=== PATIENT | female | born 1950 | race Caucasian/White ===

== ENCOUNTER → 2018-09-24 | Outpatient (CLI) | payer OTHER ==
[~2018-09-24] MED LIST: ATORVASTATIN CA20 MG PO; FUROSEMIDE40 MG PO; KLOR-CON 88 MEQ PO; LEVOTHYROXINE50 MCG PO; LOSARTAN POTASS25 MG PO; METFORMIN HCL500 MG PO; METOPROLOL SUC100 MG PO; NOVOLIN N100 UNIT/1 SQ; NOVOLIN R100 UNIT/1 SQ; PAROXETINE HCL20 MG PO
--- NOTE | 2018-09-25 09:58 | Diagnostic Imaging Report ---
PROCEDURE: BONE DXA DUAL ENERGY COMPARISON:None. INDICATIONS:OSTEOPORSIS SCREENING FINDINGS:Evaluation of the left hip and lumbar spine was performed utilizing DEXA Hologic bone densitometer. The study is technically adequate. The patient does not have any known previous non-traumatic fractures or other risk factors. Left hip total bone mineral density: 1.023 gm/cm2, T-score is 0.5, Z-score is 1.9. Lumbar spine total bone mineral density: 1.189 gm/cm2, T-score is 1.3, Z-score is 3.4. Impression: 1. Normal bone mineral density of the left hip, fracture risk is not increased. 2. Normal bone mineral density of the lumbar spine, fracture risk is not increased. The patient's fracture risk is compared to an age-matched control. Medical evaluation for secondary causes of low bone mineral density may be appropriate. Correlate clinically for the necessity and timing of the next bone mineral density study. National Osteoporosis Foundation recommendations: Initial therapy to reduce fracture risk in postmenopausal women with -BMD t-scores below -2.0 by central DXA with no risk factors -BMD t-scores below -1.5 by central CXA with one or more risk factors (first deg relative with hip fracture, prior personal fracture, low body weight, smoking) -A prior vertebral or hip fracture AACE n(Clinical Endocrinology) recommends treating the following: Postmenopausal women who have osteoporosis as diagnosed by fragility fractures or t-score -2.5 or below. Postmenopausal women who have risk factors (including hx of hip fracture, low body weight, smoking, risk of falling, high bone turnover, advancing age) and borderline low BMD T-scores of -1.5 or below Adequate intake of calcium (at least 1200mg/day) and vitamin D (400-800IU/day). Regular weight bearing and muscle-strengthening exercises Avoid smoking and excessive alcohol Romario Navarrete D.O. Dictated by: Romario Navarrete D.O. on 09/25/2018 at 10:07 Electronically approved by: Romario Navarrete D.O. on 09/25/2018 at 10:07
== END ==
LOC: DX 07:50
PROVIDERS: ATTEND Obstetrics & Gynecology
DX: Z78.0 Asymptomatic menopausal state (principal)
CPT/HCPCS: 77080

== ENCOUNTER → 2018-11-09 | Day surgery (SDC) | payer OTHER ==
[2018-11-02 15:12] LABS: BASOPHILS # (AUTO) 0.1 (0.0-0.1); BASOPHILS % 0.7 % (0.0-1.0); EOSINOPHILS # (AUTO) 0.3 (0.0-0.4); EOSINOPHILS % 3.4 % (0.0-6.0); HEMATOCRIT 38.2 % (34.2-44.1); HEMOGLOBIN 12.4 g/dL (12.0-16.0); LYMPHOCYTES # (AUTO) 2.9 (1.0-3.2); MEAN CORPUSCULAR HEMOGLOBIN 30.5 pg (28-32); MEAN CORPUSCULAR HGB CONC 32.5 g/dL (31-35); MEAN CORPUSCULAR VOLUME 93.9 fL (81-99); MONOCYTES # (AUTO) 0.4 (0.2-0.8); MONOCYTES % 4.7 % (4.4-11.3); NEUTROPHILS # (AUTO) 4.8 (2.1-6.9); PLATELET COUNT 233 x10e3/uL (140-360); RED BLOOD COUNT 4.07 x10e6/uL (3.6-5.1); RED CELL DISTRIBUTION WIDTH 12.9 % (11.7-14.4)
--- NOTE | 2018-11-02 15:31 | Diagnostic Imaging Report ---
EXAMINATION: CHEST 2 VIEWS INDICATION: Pre-op for A and P repair. Chest pain COMPARISON: None FINDINGS: TUBES and LINES: None. LUNGS: Lungs are well inflated. Mild chronic appearing changes in the lungs. There is no evidence of pneumonia or pulmonary edema. PLEURA: No pleural effusion or pneumothorax. HEART AND MEDIASTINUM: The cardiomediastinal silhouette is unremarkable. BONES AND SOFT TISSUES: No acute osseous lesion. Soft tissues are unremarkable. UPPER ABDOMEN: No free air under the diaphragm. IMPRESSION: No acute thoracic abnormality. Signed by: Dr. Akash Flores M.D. on 11/02/2018 3:28 PM
[2018-11-02 15:33] LABS: ALANINE AMINOTRANSFERASE 12 IU/L (0-55); ALBUMIN 3.5 g/dL (3.5-5.0); ALBUMIN/GLOBULIN RATIO 0.9 (0.8-2.0); ALKALINE PHOSPHATASE 71 IU/L (40-150); ANION GAP 14.4 mmol/L (8-16); BLOOD UREA NITROGEN 10 mg/dL (7-26); BUN/CREATININE RATIO 13 (6-25); CALCIUM 9.4 mg/dL (8.4-10.2); CARBON DIOXIDE 26 mmol/L (22-29); CHLORIDE 101 mmol/L (98-107); EST GLOMERULAR FILTRATION RATE > 60 ML/MIN (60-); GLUCOSE 306 mg/dL (74-118); POTASSIUM 4.4 mmol/L (3.5-5.1); SODIUM 137 mmol/L (136-145)
[~2018-11-09] MED LIST changes: +ACETAMINOPHEN/CODEINE 300MG - 30MG TAB ONE; +BUPIVACAINE 0.25% 30ML SDV INJ ONE; +CEFAZOLIN SOD 2 GM/D5W 50ML 50 ML IV ONE; +DEXAMETHASONE SOD PHOS INJ 4 MG/ML VIAL ONE; +ESTROGENS CONJUGATED VAGINAL CR 45 GM TUBE PV ONE; +FENTANYL CITRATE/PF 100MCG/2 ML INJ ONE; +GLYCOPYRROLATE INJ 1MG/ 5 ML SYR ONE; +HYDROCODONE/APAP 10MG-325MG TAB PO PRN; +HYDROMORPHONE 2MG/ML 2 MG/ML ML ONE; +KETOROLAC TROMETHAMINE 30 MG/ML VIAL IM PRN; +LIDOCAINE HCL 2% LOCAL INJ 5 ML SDV VIAL INJ ONE; +MEPERIDINE HCL INJ 25 MG/ML VIAL IV PRN; +MIDAZOLAM HCL 2 MG/2 ML VIAL ONE; +MORPHINE SULFATE INJ 4 MG/ML INJ ONE; +NEOSTIGMINE 5 MG/5ML SYR ONE; +ONDANSETRON HCL INJ 2 MG/ML VIAL ONE; +PROPOFOL IV EMULSION 10 MG/ML 20 ML VIAL ONE; +ROCURONIUM BROMIDE 10 MG/ML 5ML VIAL ONE; +SEVOFLURANE INHAL SOLN 250 ML PEN BTL ONE
--- OUTSIDE RECORDS SUMMARY | 2018-11-09 07:38 | XMS REPORT ---
Author [facility] Address Unknown Phone Unavailable Care Team Providers Care Home Theater Expert Name Role Phone SAMUEL MILTON Unavailable Unavailable Problems This patient has no known problems. Allergies, Adverse Reactions, Alerts This patient has no known allergies or adverse reactions. Medications This patient has no known medications. Results Test Description Test Time Test Comments Text Results Atomic Results Result Comments CHEST 2 VIEWS 2018-11-02 15:27:00 [place] [address] Patient Name: CAL [place] MR #: [id number] : 1950 Age/Sex: 68/F Req #: [id number] Adm Physician: Ordered by: SAMUEL MILTON MD Report #: [id number] Location: OR Room/Bed: Procedure: [id number] DX/CHEST 2 VIEWS Exam Date: 11/02/18 Exam Time: 1510 REPORT STATUS: Signed EXAMINATION: CHEST 2 VIEWS INDICATION: Pre-op f or A and P repair. Chest pain COMPARISON: None FINDINGS: TUBES and LINES: None. LUNGS: Lungs are well inflated. Mild chronic appearing changes in the lungs. There is no evidence of pneumonia or pulmonary edema. PLEURA: No pleural effusion or pneumothorax. HEART AND MEDIASTINUM: The cardiomediastinal silhouette is unremarkable. BONES AND SOFT TISSUES: No acute osseous lesion. Soft tissues are unremarkable. UPPER ABDOMEN: No free air under the diaphragm. IMPRESSION: No acute thoracic abnormality. Signed by: Dr. Akash Flores M.D. on 11/02/2018 3:28 PM Dictated By: AKASH FLORES MD, MD 27 Transcribed By: JEROME on 11/02/181527 COPY TO: SAMUEL MILTON MD BONE DXA DUAL ENERGY 2018-09-25 10:07:00 [place] [address] Patient Name: CAL [place] MR #: [id number] : 1950 Age/Sex: 68/F Req #: [id number] Adm Physician: Ordered by: SAMUEL MILTON MD Report #: [id number] Location: DX Room/Bed: Procedure: [id number] DX/BONE DXA DUAL ENERGY Exam Date: Exam Time: REPORT STATUS: Signed PROCEDURE: BONE DXA DUAL ENERGY COMPARISON: None. INDICATIONS: OSTEOPORSIS SCREENING FINDINGS: Evaluation of the left hip and lumbar spine was performed utilizing DEXA Hologic bone densitometer. The study is technically adequate. The patient does not have any known previous non-traumatic fractures or other risk factors. Left hip total bone mineral density: 1.023 gm/cm2, T-score is 0.5, Z-score is 1.9. Lumbar spine total bone mineral density: 1.189 gm/cm2, T-score is 1.3, Z- score is 3.4. Impression: 1. Normal bone mineral density of the left hip, fracture risk is not increased. 2. Normal bone mineral density of the lumbar spine, fracture risk is not increased. The patient's fracture risk is compared to an age-matched control. Medical evaluation for secondary causes of low bone mineral density may be appropriate. Correlate clinically for the necessity and timing of the next bone mineral density study. National Osteoporosis Foundation recommendations: Initial therapy to reduce fracture risk in postmenopausal women with -BMD t-scores below -2.0 by central DXA with no risk factors -BMD t-scores below -1.5 by central CXA with one or more risk factors (first deg relative with hip fracture, prior personal fracture, low body weight, smoking) - A prior vertebral or hip fracture AACE n(Clinical Endocrinology) recommend s treating the following: Postmenopausal women who have osteoporosis as diagnosed by fragility fractures or t-score -2.5 or below. Postmenopausal women who have risk factors (including hx of hip fracture, low body weight, smoking, risk of falling, high bone turnover, advancing age) and borderline low BMD T-scores of -1.5 or below Adequate intake of calcium (at least 1200mg/day) and vitamin D (400-800IU/day). Regular weight bearing and muscle-strengthening exercises Avoid smoking and excessive alcohol Cheryl Navarrete D.O. Dictated by: Cheryl Navarrete D.O. on 09/25/2018 at 10:07 Electronically approved by: Cheryl Navarrete D.O. on 09/25/2018 at 10:07 Dictated By: CHERYL NAVARRETE DO [id number] Transcribed By: HUMAIRA on 09/25/18 1007 COPY TO: SAMUEL MILTON MD
--- NOTE | 2018-11-09 13:03 | Operative Report ---
DATE OF PROCEDURE: PREOPERATIVE DIAGNOSES 1. Cystocele. 2. Rectocele. POSTOPERATIVE DIAGNOSES 1. Cystocele. 2. Rectocele. OPERATION PERFORMED: Anterior and posterior repair. COMPLICATIONS: None. ESTIMATED BLOOD LOSS: Minimal. PROCEDURE: Patient was taken to the OR where general anesthesia was placed. She was prepped and draped in the normal sterile fashion and placed in the dorsal lithotomy position. After examination under anesthesia, a weighted speculum was placed inside of the vagina. Two Allis clamps were applied at the closest vaginal vault anteriorly and subvaginal tissue was injected with Marcaine with epinephrine 0.25%. Vaginal skin incision was made in the anterior wall of the vagina between the 2 Allis clamps and the vagina was dissected vault was opened with a scalpel, and the vagina was dissected off the bladder using Metzenbaum scissors using push-spread technique. The vagina was opened in the midline using the same instrument and 2 flaps of the vagina were dissected off underlying muscle using both sharp and blunt dissection. Following this, pubocervical ligaments on each side were approximated using Vicryl 2-0 and excess vaginal skin was trimmed off using curved Emerson scissors. The vagina was closed with interlocking stitches of Vicryl 0. Following this, the posterior wall was attended to the posterior repair was performed with 2 Allis clamp were applied at the mucocutaneous junction about 0.5 cm from the fourchette on each side and the vagina and epithelium were excised using curved Emerson scissors and the vagina was dissected off the perineum and the rectum using the Metzenbaum scissors using the push-spread technique. The 2 flaps of the vagina dissected off the underlying tissues using both sharp and blunt dissection. Following this, the perineal muscles were approximated using Vicryl 0 stitch and the levator ani was approximated with another suture using the Vicryl 0. Excess vaginal skin was trimmed off using curved Emerson scissors and the vagina was approximated with interlocking stitches of Vicryl 0. The perineal muscles approximated using Vicryl 0 and perineal skin was approximated with Vicryl 2-0 suture. Patient tolerated the procedure well. Lap, instrument and needle count was correct x2 at the end of the procedure. Job#: [id number] MORIS
[2018-11-09 20:00] VITALS: BP 107/73
== END | disposition home or self-care (01) ==
LOC: OR 07:36
PROVIDERS: ATTEND Obstetrics & Gynecology
DX: N81.89 Other female genital prolapse (principal); I10 Essential (primary) hypertension; E11.9 Type 2 diabetes mellitus without complications; Z01.810 Encounter for preprocedural cardiovascular examination; Z01.812 Encounter for preprocedural laboratory examination; Z01.818 Encounter for other preprocedural examination; Z79.4 Long term (current) use of insulin
CPT/HCPCS: 36415 ×2; 57260; 71046; 80053; 82948; 85025; 93005; J0690; J1100; J1170; J2001; J2250; J2270; J2405; J2704; J3490

== ENCOUNTER → 2021-06-06 | Day surgery (SDC) | payer MEDICARE ==
[2021-06-04 13:13] LABS: BASOPHILS # (AUTO) 0.1 (0.0-0.1); BASOPHILS % 0.6 % (0.0-1.0); EOSINOPHILS # (AUTO) 0.3 (0.0-0.4); EOSINOPHILS % 3.2 % (0.0-6.0); HEMATOCRIT 37.1 % (34.2-44.1); HEMOGLOBIN 11.6 g/dL (12.0-16.0); LYMPHOCYTES # (AUTO) 3.5 (1.0-3.2); LYMPHOCYTES % 34.6 % (18.0-39.1); MEAN CORPUSCULAR HGB CONC 31.3 g/dL (31-35); MEAN CORPUSCULAR VOLUME 92.8 fL (81-99); MONOCYTES # (AUTO) 0.5 (0.2-0.8); MONOCYTES % 5.2 % (4.4-11.3); NEUTROPHILS # (AUTO) 5.6 (2.1-6.9); NEUTROPHILS % 56.1 % (38.7-80.0); PLATELET COUNT 267 x10e3/uL (140-360); RED CELL DISTRIBUTION WIDTH 14.2 % (11.7-14.4)
[~2021-06-06] MED LIST changes: -ACETAMINOPHEN/CODEINE 300MG - 30MG TAB ONE; -BUPIVACAINE 0.25% 30ML SDV INJ ONE; -CEFAZOLIN SOD 2 GM/D5W 50ML 50 ML IV ONE; -DEXAMETHASONE SOD PHOS INJ 4 MG/ML VIAL ONE; -ESTROGENS CONJUGATED VAGINAL CR 45 GM TUBE PV ONE; -FENTANYL CITRATE/PF 100MCG/2 ML INJ ONE; +FEROSUL325 MG PO; +GABAPENTIN600 MG PO; -GLYCOPYRROLATE INJ 1MG/ 5 ML SYR ONE; -HYDROCODONE/APAP 10MG-325MG TAB PO PRN; -HYDROMORPHONE 2MG/ML 2 MG/ML ML ONE; +INSULIN IJ; -KETOROLAC TROMETHAMINE 30 MG/ML VIAL IM PRN; -MEPERIDINE HCL INJ 25 MG/ML VIAL IV PRN; -MIDAZOLAM HCL 2 MG/2 ML VIAL ONE; -MORPHINE SULFATE INJ 4 MG/ML INJ ONE; -NEOSTIGMINE 5 MG/5ML SYR ONE; +OMEPRAZOLE40 MG PO; -ONDANSETRON HCL INJ 2 MG/ML VIAL ONE; -ROCURONIUM BROMIDE 10 MG/ML 5ML VIAL ONE; -SEVOFLURANE INHAL SOLN 250 ML PEN BTL ONE; +TOPIRAMATE25 MG PO
[2021-06-06 07:45] VITALS: BP 126/74
== END | disposition home or self-care (01) ==
LOC: OR 05:21
PROVIDERS: ATTEND Internal Medicine Gastroenterology
DX: K29.50 Unspecified chronic gastritis without bleeding (principal); D12.5 Benign neoplasm of sigmoid colon; E11.9 Type 2 diabetes mellitus without complications; I10 Essential (primary) hypertension; Z71.3 Dietary counseling and surveillance; E66.9 Obesity, unspecified; Z68.37 Body mass index [BMI] 37.0-37.9, adult; D64.9 Anemia, unspecified; J45.909 Unspecified asthma, uncomplicated; E78.00 Pure hypercholesterolemia, unspecified; K21.9 Gastro-esophageal reflux disease without esophagitis; K64.8 Other hemorrhoids; Z79.4 Long term (current) use of insulin
CPT/HCPCS: 36415 ×2; 43239; 45385; 82948; 85025; 93005; J2001; J2704; 45378; 45380